=== PATIENT | male | born 1955 | race Native Hawaiian/Other Pacific Islander ===

== ENCOUNTER 2017-10-20 08:39 | Outpatient (CLI) | payer OTHER ==
[2017-10-20 09:00] LABS: PLATELET COUNT 209 K/uL (142-355)
== END 2017-10-20 19:19 | disposition home or self-care (01) ==
LOC: LABW 08:39
PROVIDERS: Internal Medicine
DX: K62.5 Hemorrhage of anus and rectum (principal)
CPT/HCPCS: 36415; 81000; 85027

== ENCOUNTER 2018-01-13 14:38 | Outpatient (CLI) | payer OTHER ==
[2018-01-13 15:08] LABS: POTASSIUM 3.9 mmol/L (3.6-5.2)
== END 2018-01-13 22:51 | disposition home or self-care (01) ==
LOC: LABW 14:38
PROVIDERS: Physician Assistant
DX: R39.11 Hesitancy of micturition (principal); R10.84 Generalized abdominal pain
CPT/HCPCS: 36415; 80048

== ENCOUNTER 2018-10-22 14:28 | Outpatient (CLI) | payer OTHER ==
[2018-10-22 15:07] LABS: PLATELET COUNT 215 K/uL (142-355)
[2018-10-22 15:35] LABS: POTASSIUM 3.8 mmol/L (3.6-5.2)
== END 2018-10-22 19:16 | disposition home or self-care (01) ==
LOC: LABW 14:28
PROVIDERS: Internal Medicine
DX: Z12.5 Encounter for screening for malignant neoplasm of prostate (principal); E78.5 Hyperlipidemia, unspecified; G47.30 Sleep apnea, unspecified; I10 Essential (primary) hypertension
CPT/HCPCS: 36415; 80053; 80061; 81000; 84153; 84443; 85027

== ENCOUNTER 2019-05-25 07:46 | Outpatient (CLI) | payer OTHER ==
[2019-05-25 08:18] LABS: PLATELET COUNT 239 K/uL (142-355)
[2019-05-25 08:35] LABS: POTASSIUM 4.1 mmol/L (3.6-5.2)
== END 2019-05-25 18:57 | disposition home or self-care (01) ==
LOC: LABW 07:46
PROVIDERS: Internal Medicine
DX: I10 Essential (primary) hypertension (principal)
CPT/HCPCS: 36415; 80053; 80061; 81000; 84439; 84443; 85027

== ENCOUNTER 2019-10-04 08:39 | Outpatient (CLI) | payer OTHER | END 2019-10-04 19:07 | disposition home or self-care (01) | LOC: US 08:39 | DX: R10.2 Pelvic and perineal pain (principal) ==

== ENCOUNTER 2020-01-27 08:32 | Outpatient (CLI) | payer OTHER ==
[2020-01-27 09:56] LABS: PLATELET COUNT 198 K/uL (142-355)
[2020-01-27 09:59] LABS: POTASSIUM 4.3 mmol/L (3.6-5.2)
== END 2020-01-27 21:35 | disposition home or self-care (01) ==
LOC: LABW 08:32
PROVIDERS: Internal Medicine
DX: I10 Essential (primary) hypertension (principal); E78.49 Other hyperlipidemia; N40.0 Benign prostatic hyperplasia without lower urinary tract symptoms; M25.562 Pain in left knee
CPT/HCPCS: 36415; 80053; 80061; 81000; 84153; 84439; 84443; 85027

== ENCOUNTER 2020-03-30 15:17 | Outpatient (CLI) | payer OTHER | END 2020-03-30 22:08 | disposition home or self-care (01) | LOC: RAD 15:17 | DX: M47.16 Other spondylosis with myelopathy, lumbar region (principal) ==

== ENCOUNTER 2021-05-11 08:46 | Outpatient (CLI) | payer OTHER, MEDICARE ==
[2021-05-11 09:17] LABS: PLATELET COUNT 214 K/uL (142-355)
[2021-05-11 09:52] LABS: POTASSIUM 4.2 mmol/L (3.6-5.2)
== END 2021-05-11 19:39 | disposition home or self-care (01) ==
LOC: LABW 08:46
PROVIDERS: ATTEND Internal Medicine
DX: I10 Essential (primary) hypertension (principal); Z12.5 Encounter for screening for malignant neoplasm of prostate; N40.0 Benign prostatic hyperplasia without lower urinary tract symptoms
CPT/HCPCS: 36415; 80053; 80061; 81000; 84153; 84439; 84443; 85027

== ENCOUNTER 2021-05-23 11:33 | Outpatient (CLI) | payer OTHER, MEDICARE | END 2021-05-23 21:52 | disposition home or self-care (01) | LOC: RAD 11:33 | PROVIDERS: ATTEND Internal Medicine | DX: M54.2 Cervicalgia (principal) ==

== ENCOUNTER 2022-02-28 09:38 | Outpatient (CLI) | payer OTHER | END 2022-02-28 22:24 | disposition home or self-care (01) | LOC: MRI 09:38 | PROVIDERS: ATTEND Internal Medicine | DX: M25.512 Pain in left shoulder (principal); M54.2 Cervicalgia; M54.12 Radiculopathy, cervical region; M25.511 Pain in right shoulder; M75.41 Impingement syndrome of right shoulder; M19.012 Primary osteoarthritis, left shoulder; M75.102 Unspecified rotator cuff tear or rupture of left shoulder, not specified as traumatic; M19.011 Primary osteoarthritis, right shoulder ==